=== PATIENT | male | born 1950 | race Caucasian/White ===

== ENCOUNTER 2019-04-13 08:44 | Observation (INO) | payer MEDICARE, BC ==
[2019-04-13] MEDS ORDERED: Aspirin Chewable 81 MG TAB ONE (09:18)
--- NOTE | 2019-04-13 09:29 | CT ---
CT BRAIN WITHOUT CONTRAST: HISTORY: Right-sided facial droop. COMPARISON: 12/24/2010 FINDINGS: An old infarction in the right cerebellum is again seen. The ventricular size is appropriate, and th e basilar cisterns are patent. No evidence of acute infarct, hemorrhage, midline shift, or abnormal extraaxial fluid collections noted. The bony calvarium is intact. There is mild mucosal disease in the paranasal sinuses. IMPRESSION: No CT evidence of acute intracranial process. Discussed over the telephone with ER physician, Dr. Scott Urena, at 8:57 a.m. LALO TAYLOR POS: [facility]
[2019-04-13 09:30] LABS: #Eosinphils 0.1 thou/uL (0.0-0.7); #Lymphocytes 1.1 thou/uL (1.20-3.40); #Neutrophils 8.8 thou/uL (1.40-6.50); %Basophils 0.1 % (0.0-1.0); %Eosinophils 0.5 % (0.0-10.0); %Lymphocytes 9.7 % (21.0-51.0); %Monocytes 9.2 % (0.0-10.0); %Neutrophils 80.6 % (42.0-75.0); Hemoglobin 13.2 g/dL (14.0-18.0); Mean Corpuscular HGB CONC 33.7 g/dL (32.0-36.0); Mean Corpuscular Hemoglobin 30.2 pg (27.0-31.0); Mean Corpuscular Volume 89.8 fL (78.0-98.0); Mean Platelet Volume 7.5 fL (7.4-10.4); Platelet Count 242 thou/uL (130-400); RBC Distribution Width 12.7 % (11.5-14.5); Red Blood Cell (RBC) Count 4.36 mill/uL (4.70-6.10); White Blood Cell (WBC) Count 10.9 thou/uL (4.8-10.8)
--- NOTE | 2019-04-13 09:34 | CT ---
CTA NECK WITH IV CONTRAST AND 3D POST PROCESSING: CTA HEAD WITH IV CONTRAST AND 3D POST PROCESSING: HISTORY: Level I stroke alert. Right-sided facial droop. FINDINGS: There is calcification plaque in the carotid artery systems. There is 40% stenosis of the left proxi mal ICA. There is calcified plaque causing stenosis in the cavernous sinuses on both sides. No jayla r branch occlusion or aneurysm formation is seen. A dominant left vertebral artery is present. Ther e is good flow in the vertebrobasilar artery system. There is about 30% stenosis of the right proxim al ICA. IMPRESSION: Atherosclerotic vascular disease with 40% stenosis at the left proximal internal carotid artery and a bout 30% stenosis in the right proximal internal carotid artery. Discussed over the telephone with ER physician, Dr. Scott Urena, at 9:12 a.m. CODE BRANDON POS: [facility]
[2019-04-13 09:37] LABS: INR-International Normal Ratio 1.1; PTT 25.2 SEC (22.9-36.1); Prothrombin Time 13.9 SEC (12.0-14.7)
[2019-04-13 09:49] LABS: ALT (SGPT) Less than 7 U/L (8-55); AST (SGOT) 12 U/L (5-34); Albumin 3.6 g/dL (3.4-4.8); Alkaline Phosphatase 64 U/L (40-150); Anion Gap 12 mmol/L (10-20); BUN (Urea Nitrogen) 28 mg/dL (8.4-25.7); Bilirubin, Total 0.4 mg/dL (0.2-1.2); CK (CPK) 27 U/L (30-200); Calc. Creatinine Clearance 0 mL/min (70-130); Calcium 9.3 mg/dL (7.8-10.44); Carbon Dioxide 26 mmol/L (23-31); Chloride 97 mmol/L (98-107); Estimated GFR-MDRD 59; Globulin 2.2 g/dL (2.4-3.5); Glucose 87 mg/dL (83-110); Potassium 4.3 mmol/L (3.5-5.1); Protein, Total 5.8 g/dL (5.8-8.1); Sodium 131 mmol/L (136-145)
[2019-04-13] MEDS ORDERED: Acetaminophen 325 MG TAB PO PRN ×2 (11:38→12:08)
--- NOTE | 2019-04-13 11:47 | HP ---
PRIMARY CARE PHYSICIAN: [facility]. REASON FOR ADMISSION: TIA. HISTORY OF PRESENT ILLNESS: A 69-year-old male, who has underlying history of Parkinson disease as well as previous history of TIA and stroke, who presented to emergency room for right-sided facial droop and right-sided upper and lower extremity weakness. The patient's son is paramedics and he noticed that the patient's right side of face was drooping as well as he was having right-sided weakness, both upper and lower extremity, which he noticed this morning. He was last seen normal around 8:10 a.m. The patient's family member reports that he went to bathroom and at that time he was normal, but when he came back from bathroom, he was abnormal. He was having facial drooping. He was slightly disoriented. He was having right-sided upper and lower extremity weakness. When he arrived to emergency room, his weakness was resolved. His facial droop was also resolved. The patient was not having any headache or paresthesia in the emergency room. The patient's symptoms completely resolved when evaluated in the emergency room and when I evaluated in the emergency room. In the emergency room, the patient had CT brain which was negative for any acute process. The patient had a CT angiography, which showed 40% stenosis in left proximal internal carotid artery and 30% stenosis in the right proximal internal carotid artery. The patient had CT brain, which showed old infarction in the right cerebellum. The patient did not have any speech problem. The patient's family member reports that about eight years ago, he was diagnosed with stroke and TIA. REVIEW OF SYSTEMS: CONSTITUTIONAL: Negative for weight loss or gain, ability to conduct usual activities. SKIN: Negative for rash, itching. EYES: Negative for double vision, pain. ENT/MOUTH: Negative for nose bleeding, neck stiffness, pain, tenderness. CARDIOVASCULAR: Negative for palpitations, dyspnea on exertion, orthopnea. RESPIRATORY: Negative for shortness of breath, wheezing, cough, hemoptysis, fever or night sweats. GASTROINTESTINAL: Negative for poor appetite, abdominal pain, heartburn, nausea, vomiting, constipation, or diarrhea. GENITOURINARY: Negative for urgency, frequency, dysuria, nocturia. MUSCULOSKELETAL: Negative for pain, swelling. NEUROLOGIC/PSYCHIATRIC: Negative for anxiety, depression. ALLERGY/IMMUNOLOGIC: Negative for skin rash, bleeding tendency. Please see my HPI for pertinent positives and negatives. All other review of systems reviewed and negative except as mentioned in HPI. PAST MEDICAL HISTORY: Parkinson disease, history of CVA/TIA in 2011, CKD stage 3, hypertension, dyslipidemia, benign enlargement of prostate, and COPD/asthma. PAST PSYCHIATRIC HISTORY: Anxiety and depression. PAST SURGICAL HISTORY: Appendicectomy. SOCIAL HISTORY: The patient drinks alcohol socially once a month. He is former smoker. He quit smoking in 2010. He lives at home with his family. FAMILY HISTORY: No family history of coronary artery disease, stroke, or cancer. ALLERGIES: BACTRIM AND SULFA DRUGS. CURRENT HOME MEDICATIONS: 1. Plavix 75 mg p.o. daily. 2. Flomax 0.4 mg p.o. daily. 3. Proscar 5 mg p.o. daily. 4. Lipitor 40 mg p.o. nightly. 5. Levodopa-carbidopa one tab t.i.d. 6. Celexa 10 mg daily. 7. Losartan 12.5 mg p.o. daily. 8. Gabapentin 200 mg t.i.d. 9. Metoprolol 50 mg b.i.d. 10. Symbicort one puff inhalation b.i.d. 11. Multivitamin one tablet p.o. daily. 12. Albuterol nebulization q.6 hourly p.r.n. EMERGENCY ROOM COURSE: The patient is given aspirin 81 mg. PHYSICAL EXAMINATION: VITAL SIGNS: Currently, blood pressure 154/64, pulse 57, respiratory rate 16, temperature 97.5, and saturation 100% on room air. Weight 78.4 kg. GENERAL: The patient is currently alert, awake, in no obvious acute distress. HEENT: Head; normocephalic and atraumatic. Eyes; pupils are round and reactive to light. Extraocular muscles are intact. ENT, oropharynx within normal limits. Moist mucous membranes. No oral lesion. No pharyngeal erythema. No exudate. NECK: Supple. No JVD. No thyromegaly. No carotid bruit. No jugular venous distention. LUNGS: Clear to auscultation without any rhonchi or rales. CARDIAC: S1 and S2, regular. No murmur. No gallop. No rub. ABDOMEN: Soft. Bowel sounds present. Nontender. Nondistended. No organomegaly. No mass. No suprapubic tenderness. BACK: Examination unremarkable. No CVA tenderness. EXTREMITIES: Upper extremities, passive movement of all joints are normal. Lower extremities, no edema, good distal pulsation. SKIN: No skin rash. HEMATOLOGIC SYSTEM: No lymphadenopathy. NEUROLOGIC: Nonfocal examination. At this point, I could not see any speech abnormality. No pronator drift. No weakness. No sensory abnormality. No cerebellar sign. Neurological examination is normal. PSYCHIATRIC: Normal affect. SIGNIFICANT LABORATORY DATA: EKG showing normal sinus rhythm without any acute ischemic changes. CT brain showing old cerebellar infarction, but no acute process. CT angiography showing 40% stenosis in left internal carotid artery and 30% stenosis in right internal carotid artery. CBC; WBC 10.9, hemoglobin 13.2, and platelets are 242. INR 1.1. BMP; sodium 131, potassium 4.3, chloride 97, carbon dioxide 26, anion gap 12, BUN 28, creatinine 1.21, glucose 87, calcium 9.3. LFT; AST 12, ALT less than 7, and alkaline phosphatase 64. Albumin 3.6. Troponin less than 0.010. ASSESSMENT AND PLAN: 1. Transient ischemic attack. The patient had right-sided upper and lower extremity weakness with facial droop, which has rapidly improved in the emergency room. The patient did not require any intervention. Currently, CT brain and CT [place] is negative for any acute process. The patient does have underlying carotid stenosis. The patient does have previous transient ischemic attack and old infarction in the CT brain that may be related with atheroemboli from carotid stenosis. This patient will need admission for observation. We will do MRI brain to rule out any new stroke. We will obtain echocardiography to assess EF and other structural abnormality. We will increase his Lipitor to 40 mg p.o. nightly. We will continue with aspirin 81 mg p.o. daily. 2. Plavix 75 mg p.o. daily. The patient is already following Neurology in [facility]. If our MRI report shows acute stroke, then we will consult Neurology tomorrow. We will check lipid profile for risk stratification. We will do neuro check while in hospital. At this point, the patient is back to normal. He does not need any PT, OT, or Speech evaluation, but we will closely monitor for any the recurrent episodes of stroke. 3. Parkinson disease. The patient is taking carbidopa-levodopa 25/100 one tablet t.i.d., which we will continue while in hospital. 4. Dyslipidemia. Check lipid profile and we will increase Lipitor from 20 to 40 mg p.o. nightly. 5. Anxiety and depression. We will continue Celexa 10 mg p.o. daily. 6. Benign enlargement of prostate. We will continue Proscar 5 mg p.o. daily as well as Flomax 0.4 mg p.o. daily. 7. Hypertension. We will continue losartan 12.5 mg p.o. daily and metoprolol 50 mg b.i.d. 8. Chronic obstructive pulmonary disease/asthma. We will continue Dulera one puff inhalation b.i.d., Spiriva 18 mcg inhalation daily, and Ventolin nebulization q.6 hourly p.r.n. 9. Deep venous thrombosis prophylaxis. Lovenox 40 mg subcu daily. GI prophylaxis. Pepcid 20 mg p.o. b.i.d. CODE STATUS: The patient is full code. The patient's son is surrogate decision maker. DISPOSITION PLAN: Based on clinical course, the patient will need outpatient Cardiology referral for Holter monitoring to rule out any arrhythmia. Plan of care discussed with the patient's family member extensively in detail. Job ID: [id number]
[2019-04-13] MEDS ORDERED: Calcium Carbonate 500 MG ChewTAB PO PRN (12:08)
[2019-04-13] MEDS ORDERED: Sodium Chloride 0.65% Nasal 44 ML BOT EA NARE PRN (12:08)
[2019-04-13] MEDS ORDERED: Ondansetron PF 4 MG/2 ML Vial IVP PRN (12:08)
[2019-04-13] MEDS ORDERED: Diabetic Tussin 200 MG/10 ML UDCUP PO PRN (12:08)
[2019-04-13] MEDS ORDERED: Artificial Tears 18 DROP/0.9 ML EA EYE PRN (12:08)
[2019-04-13] MEDS ORDERED: Albuterol Sulfate 2.5 mg/3 ml Neb NEB PRN (12:08)
[2019-04-13] MEDS ORDERED: Ondansetron ODT 4 MG TAB PO PRN (12:08)
[2019-04-13] MEDS ORDERED: Zolpidem Tartrate 5 MG TAB PO PRN (12:08)
[2019-04-13] MEDS ORDERED: Loperamide HCl 2 MG CAP PO PRN (12:08)
[2019-04-13] MEDS ORDERED: hydrALAZINE 20 MG/ML VIAL SLOW IVP PRN (12:08)
[2019-04-13] MEDS ORDERED: Loratadine 10 MG TAB PO PRN (12:08)
[2019-04-13] MEDS ORDERED: Bisacodyl 10 MG SUPP PR PRN (12:08)
[2019-04-13] MEDS ORDERED: HYDROcodone/Acetaminophen 5/325 mg Tablet PO PRN (12:08)
[2019-04-13] MEDS ORDERED: Senokot S 8.6-50 MG TAB PO PRN (12:08)
[2019-04-13] MEDS ORDERED: Cepastat Lozenges 1 LOZ PO PRN (12:08)
[2019-04-13 12:12] VITALS: BMI 26.6
[2019-04-13] MEDS: Carbidopa/Levodopa 25-100 mg Tablet PO SCH ×2 (14:57→20:29)
[2019-04-13] MEDS: Gabapentin 100 MG CAP PO SCH ×2 (14:57→20:28)
[2019-04-13] MEDS ORDERED: ISOVUE-370 76%-LOCM 1 ML ONE (16:42)
[2019-04-13] MEDS: Mometasone/Formoterol 120 PUFF INHALER INH SCH (18:26)
[2019-04-13] MEDS: Famotidine 20 MG TAB PO SCH (20:28)
[2019-04-13] MEDS: Metoprolol Tartrate 50 MG TAB PO SCH (20:29)
[2019-04-13] MEDS ORDERED: Atorvastatin Calcium 40 MG TAB PO SCH (21:00)
[2019-04-13] MEDS ORDERED: Trihexyphenidyl 2 MG TAB PO SCH (22:15)
[2019-04-13] MEDS ORDERED: Clopidogrel Bisulfate 75 MG TAB PO SCH (22:30)
[2019-04-14 05:32] LABS: #Eosinphils 0.1 thou/uL (0.0-0.7); #Lymphocytes 0.6 thou/uL (1.20-3.40); #Monocytes 0.3 thou/uL (0.11-0.59); #Neutrophils 9.2 thou/uL (1.40-6.50); %Eosinophils 0.8 % (0.0-10.0); %Lymphocytes 6.2 % (21.0-51.0); %Monocytes 3.3 % (0.0-10.0); %Neutrophils 89.7 % (42.0-75.0); Hemoglobin 13.6 g/dL (14.0-18.0); Mean Corpuscular HGB CONC 33.2 g/dL (32.0-36.0); Mean Corpuscular Hemoglobin 29.9 pg (27.0-31.0); Mean Corpuscular Volume 89.9 fL (78.0-98.0); Mean Platelet Volume 7.5 fL (7.4-10.4); Platelet Count 249 thou/uL (130-400); RBC Distribution Width 12.8 % (11.5-14.5); Red Blood Cell (RBC) Count 4.55 mill/uL (4.70-6.10); White Blood Cell (WBC) Count 10.2 thou/uL (4.8-10.8)
[2019-04-14 06:00] LABS: Anion Gap 12 mmol/L (10-20); BUN (Urea Nitrogen) 25 mg/dL (8.4-25.7); Calc. Creatinine Clearance 66 mL/min (70-130); Calcium 8.9 mg/dL (7.8-10.44); Carbon Dioxide 22 mmol/L (23-31); Cardiac Risk 2.3 (Less than 4.5); Chloride 100 mmol/L (98-107); Cholesterol 132 mg/dl (< 200 Desired); Estimated GFR-MDRD 63; Glucose 139 mg/dL (83-110); HDL Cholesterol 57 mg/dL (>60 Neg Risk); LDL Cholesterol, Calculated 67 mg/dL; Sodium 129 mmol/L (136-145); Triglycerides 39 mg/dL (Less than 150)
[2019-04-14] MEDS: Mometasone/Formoterol 120 PUFF INHALER INH SCH (06:54)
[2019-04-14] MEDS ORDERED: Aspirin 81 mg Enteric Coated Tablet PO SCH (09:00)
[2019-04-14] MEDS ORDERED: Tamsulosin HCl 0.4 MG CAP PO SCH (09:00)
[2019-04-14] MEDS ORDERED: Multivitamin W/ Minerals 1 TAB PO SCH (09:00)
[2019-04-14] MEDS ORDERED: Losartan 25 MG TAB PO SCH (09:00)
[2019-04-14] MEDS ORDERED: Finasteride 5 MG TAB PO SCH (09:00)
[2019-04-14] MEDS ORDERED: Enoxaparin Sodium 40 MG/0.4 ML SYRINGE SC SCH (09:00)
[2019-04-14] MEDS ORDERED: Citalopram 10 MG TAB PO SCH (09:00)
[2019-04-14] MEDS ORDERED: Clopidogrel Bisulfate 75 MG TAB PO SCH ×2 (09:00→21:00)
[2019-04-14] MEDS: Carbidopa/Levodopa 25-100 mg Tablet PO SCH (10:07)
[2019-04-14] MEDS: Famotidine 20 MG TAB PO SCH (10:08)
[2019-04-14] MEDS: Gabapentin 100 MG CAP PO SCH (10:08)
[2019-04-14] MEDS: Metoprolol Tartrate 50 MG TAB PO SCH (10:09)
--- NOTE | 2019-04-14 10:58 | MRI ---
MRI BRAIN WITHOUT CONTRAST: INDICATIONS: TIA. COMPARISON: Prior MRI brain dated 10/26/2010. CORRELATION: CT from yesterday, which showed no acute finding. FINDINGS: Mild cortical volume loss is stable from the prior CT of 2010. Mild chronic ischemic changes also ap pears stable. No mass or edema. There is encephalomalacia in the right cerebellar hemisphere, which was present on the prior exam. No evidence of restricted diffusion seen today. There is no emelia of acute infarct. The intracranial internal carotid arteries and cerebral arteries demonstrate expected flow voids. IMPRESSION: No evidence of acute infarct. POS: [facility]
[2019-04-14 11:48] VITALS: BP 160/75; TEMP 97.6
--- NOTE | 2019-04-14 12:17 | CON ---
DATE OF TELEMEDICINE CONSULTATION: 04/14/2019 Nurse accompanying me is Cassandra. CHIEF COMPLAINT: Dizziness. HISTORY OF PRESENT ILLNESS: The patient is a 69-year-old man who reports he felt dizzy and off balance, like he was having a stroke most of yesterday. He also had right-sided weakness and speech difficulty. He is doing much better now and is back to baseline today. His strength has improved. He had a previous CVA in 2010, which also affected the right side. He has been on aspirin since then and at some point, someone change his aspirin to Plavix, and they are not sure why this was changed. PREVIOUS MEDICAL HISTORY: Positive for hypertension, stroke on the right side in 2010, Parkinson's disease diagnosed in 2016, renal failure, stage 3, which was his preexisting diagnosis. SURGICAL HISTORY: Appendectomy in the 1960s, and no other surgeries in the past. SOCIAL HISTORY: He drinks alcohol socially once a month. He is a former smoker. He quit smoking in 2010. He lives with his at home. FAMILY HISTORY: He has 2 sisters, 68 and 73, both are healthy. He has a brother who from a pneumonia. His mother lived to be 62. She had myocardial infarction. His father at age 76 following COPD, and he has no family history of stroke, except a maternal grandmother having had a myocardial infarction. REVIEW OF SYSTEMS: PULMONARY: Negative for shortness of breath. GASTROINTESTINAL: Negative for nausea, vomiting, and diarrhea. HEMATOLOGICAL: Negative for bleeding diatheses or anemia. OPHTHALMOLOGIC: Negative for any vision problem. DERMATOLOGIC: Negative for skin rash. NEUROLOGICAL: Positive for balance problems, dizziness, and right-sided weakness along with speech difficulties. LABORATORY WORKUP: Current workup, white count 10.2, hemoglobin 13.6, hematocrit 40.9, and platelets are 249. Chemistry; sodium is 129, potassium 5.0, glucose 139, creatinine 1.15, BUN 25, bicarb 22, and triglycerides 39, cholesterol 132, LDL 67, HDL 57, heart disease risk ratio 2.3. CT angiogram was positive for atherosclerotic vascular disease with 40% stenosis, left proximal ICA and 30% stenosis, right proximal ICA. MRI has been completed and does not show an acute infarct. PHYSICAL EXAMINATION: VITAL SIGNS: Temperature 98.3, pulse 66, respiratory rate 16, O2 saturations 95 %, blood pressure 162/77. GENERAL APPEARANCE: Well-built, well-nourished man, who is comfortable in bed. CHEST: Clear vesicular breathing. CARDIOVASCULAR: S1 and S2 heard. No murmurs. ABDOMEN: Soft, slightly increased bowel sounds. NEUROLOGICAL EXAMINATION: Higher intellectual functions. Oriented to time, place, and person. Appropriate conversation. Cranial nerves normal with normal extraocular movements, and normal sensation of face bilaterally. Tongue midline. No atrophy noted. Normal elevation of palate. Very mild asymmetry on the right face and slightly decreased. Normal hearing bilaterally to finger rub. Motor, bulk normal. Tone normal. Strength 5/5 throughout in both upper and lower extremities. Muscle groups tested are deltoid, biceps, triceps, wrist extension and flexion, finger extension and flexion bilaterally, and iliopsoas, hamstrings, quadriceps, ankle dorsiflexion, plantar flexion. Deep tendon reflexes were 2+ throughout and sensory exam, normal to touch bilaterally in upper and lower extremities. Cerebellar, normal bilaterally. IMPRESSION: The patient is a 69-year-old man, who had dizziness, feeling off balance most of yesterday. He has right-sided weakness and speech difficulties , all of which has resolved. At this time, he is back to his baseline. Neurological exam is normal except for very mild facial asymmetry on the right side. Diagnosis is most consistent with transient ischemic attack. I am not sure why he is off aspirin. At this time, he will need to go back on aspirin for stroke prophylaxis. TREATMENT RECOMMENDATIONS: 1. Please add aspirin to his treatment regimen along with statin, so he will be on aspirin, Plavix, and atorvastatin prior to discharge. 2. He can be discharged to home from a Neuro standpoint. Call me, if you have any further questions. Job ID: [id number] [facility]
[2019-04-14] MEDS ORDERED: Trihexyphenidyl 2 MG TAB PO SCH (21:00)
--- NOTE | 2019-04-15 01:59 | DIS ---
DATE OF ADMISSION: 04/13/2019 DATE OF DISCHARGE: 04/14/2019 CONDITION ON DISCHARGE: Stable. DISCHARGE INSTRUCTIONS: 1. Start aspirin/Plavix combination therapy in addition to continuing atorvastatin and losartan as a stroke regimen. 2. Follow up with primary care physician in the next 5 to 7 days. 3. Follow up with Neurology in the outpatient clinic on ways to avoid future CVA. As this is the patient's 2nd CVA, combination of aspirin and Plavix was recommended by the Neurology on consult. REASON FOR HOSPITALIZATION: TIA. SIGNIFICANT FINDINGS: MRI of the brain was performed-please see full report for details-no acute intracranial pathology was identified. HOME MEDICATIONS: Please see full home medication list for details with the changing recommendation of adding aspirin in addition to the patient's Plavix. HISTORY OF PRESENT ILLNESS: Mr. Smiley is a very pleasant 69-year-old gentleman with past medical history of CVA, Parkinson disease, hypertension, neuropathic pain, BPH, reactive airway disease, and GERD, who presents with acute onset of right-sided facial drooping and right-sided upper and lower extremity weakness. The patient was admitted to medical unit with telemetry for close observation. Neurology consultation requested, please see full consultation and progress notes for details. The patient initially had CT scan of the brain which was negative for acute process. The patient had CT angiography of the [place], please see full report for details, there is atherosclerotic vascular disease with 40% stenosis at the left proximal internal carotid artery and about 30% stenosis in the right proximal internal carotid artery. The patient was recommended for MRI of the brain, please see full report for details, no acute intracranial process and no acute infarction was seen. The patient's symptoms resolved since admission to the hospital. The patient is ambulating to and from the restroom without difficulties. The patient is diagnosed with transient ischemic attack and Neurology recommending the patient go on a combination of aspirin and Plavix. The patient is recommended to follow up with Neurology in the outpatient clinic on further strategies to avoid future TIA/strokes. The patient is recommended to follow up with primary care physician in the next 5 to 7 days. The patient is recommended to take all medications as directed. The patient is recommended to return to acute care hospital immediately if signs or symptoms return, worsen, or any other new symptoms occur. Greater than 34 minutes spent coordinating care and discharge process. Job ID: [id number] [facility]
== END 2019-04-14 15:23 | disposition home or self-care (01) ==
LOC: ERS 08:44 → 2SE 10:04
PROVIDERS: ADMIT Internal Medicine; ATTEND Internal Medicine
DX: G45.9 Transient cerebral ischemic attack, unspecified (principal); G20 Parkinson's disease; I12.9 Hypertensive chronic kidney disease with stage 1 through stage 4 chronic kidney disease, or unspecified chronic kidney disease; N18.3 Chronic kidney disease, stage 3 (moderate); N40.0 Benign prostatic hyperplasia without lower urinary tract symptoms; E78.5 Hyperlipidemia, unspecified; K21.9 Gastro-esophageal reflux disease without esophagitis; J44.9 Chronic obstructive pulmonary disease, unspecified; F32.9 Major depressive disorder, single episode, unspecified; F41.9 Anxiety disorder, unspecified; Z86.73 Personal history of transient ischemic attack (TIA), and cerebral infarction without residual deficits; Z87.891 Personal history of nicotine dependence; Z88.1 Allergy status to other antibiotic agents; Z88.2 Allergy status to sulfonamides; Z79.02 Long term (current) use of antithrombotics/antiplatelets; Z79.01 Long term (current) use of anticoagulants; Z79.899 Other long term (current) drug therapy
CPT/HCPCS: 70450; 70496; 70498; 70551; 80048; 80053; 80061; 82550; 82962; 84484; 85025 ×2; 85610; 85730; 93005; 93306; 94640 ×4; 96372; 99285; G0378 ×3; 36415; 36416; J1650; J7620; Q9966